=== PATIENT | female | born 1980 | race Caucasian/White ===

== ENCOUNTER 2018-03-19 21:37 | Emergency (ER) | payer OTHER ==
[~2018-03-19] VITALS: Ht 162.6 cm; Wt 65.5 kg
[2018-03-20 00:45] LABS: CHLORIDE 108 mEq/L (99-109); POTASSIUM 4.4 mEq/L (3.7-5.4); SODIUM 140 mEq/L (136-147)
[2018-03-20 00:47] LABS: GLUCOSE 88 mg/dL (70-99)
[2018-03-20 00:50] LABS: CREATININE 0.8 mg/dL (0.6-1.3); GFR ESTIMATE (CALCULATED) > 59 mL/min/
[2018-03-20 00:51] LABS: UREA NITROGEN (BUN) 14 mg/dL (9-23)
[2018-03-20 02:04] VITALS: BP 126/79
== END 2018-03-20 02:05 | disposition home or self-care (01) ==
LOC: EME 21:37
PROVIDERS: Emergency Medicine
DX: S13.9XXA Sprain of joints and ligaments of unspecified parts of neck, initial encounter (principal); T74.11XA Adult physical abuse, confirmed, initial encounter; Y04.0XXA Assault by unarmed brawl or fight, initial encounter; Y07.01 Husband, perpetrator of maltreatment and neglect
CPT/HCPCS: 70450; 70498; 72125; 80048; 99281; 99285